=== PATIENT | male | born 1935 | race Caucasian/White ===

== ENCOUNTER → 2022-05-09 | Outpatient (CLI) | payer MEDICARE ==
--- NOTE | 2022-05-09 14:42 | XR ---
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 Subacromial space preserved. There is severe degenerative change at the glenohumeral joint with [id number] jeni culation and bulky inferior humeral head spurring. No acute fracture, subluxation, or dislocation. Impression: 1. Severe, [id number] left glenohumeral joint OA. 2. Moderate AC joint OA. 3. No acute osseous abnormality seen.
== END | disposition home or self-care (01) ==
LOC: RADXRMAIN 10:28
PROVIDERS: ATTEND Family Medicine
DX: M24.612 Ankylosis, left shoulder (principal)